=== PATIENT | female | born 1945 | race Caucasian/White ===

== ENCOUNTER 2016-07-25 14:02 | Emergency (ER) | payer MEDICARE, BC ==
[2016-07-25 14:44] VITALS: BP 148/75
--- NOTE | 2016-07-25 14:56 | EDM.PDOC ---
ED HPI Trauma - General Chief Complaint: Lower Extremity Injury/Pain Stated Complaint: FELL AND HURT LT FOOT Time Seen by Provider: 07/25/16 14:54 Source: Reports: Patient History Limitations: Reports: No limitations - History of Present Illness INITIAL COMMENTS - FREE TEXT/NARRATIVE: Pt hit the lateral aspect of the left foot getting out of the car, Occurred When: just prior to arrival Occurred Where: home Method of Injury: fall Pain/Injury Location: Reports: lower extremity, left Consciousness: Reports: no loss of consciousness Allergies/ADRs: Allergies ampicillin Allergy (Verified 07/25/16 14:43) Rash Home Medications: Ambulatory Orders Levothyroxine Sodium [Synthroid] 75 mg PO DAILY 07/25/16 [Confirmed 07/25/16] Liothyronine Sodium 5 mg PO DAILY 07/25/16 [Confirmed 07/25/16] Metoprolol Succinate 25 mg PO DAILY 07/25/16 [Confirmed 07/25/16] Past Medical History HEENT History: Reports: Impaired vision Cardiovascular History: Reports: Hypertension 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: Musculoskeletal History: Reports: Arthritis, Fracture Psychiatric History: Reports: Anxiety Endocrine/Metabolic History: Reports: Hypothyroidism - Past Surgical History Other Respiratory Surgeries/Procedures: cpap Female Surgical History: Reports: Hysterectomy Social & Family History - Tobacco Use Smoking Status *Q: Never Smoker - Caffeine Use Caffeine Use: Reports: Coffee - Recreational Drug Use Recreational Drug Use: No Review of Systems - Review of Systems Review Of Systems: See Below Constitutional: Reports: no symptoms Eyes: Reports: no symptoms Ears: Reports: no symptoms Nose: Reports: no symptoms Mouth/Throat: Reports: no symptoms Respiratory: Reports: No Symptoms Cardiovascular: Reports: no symptoms GI/Abdominal: Reports: No symptoms Musculoskeletal: Reports: other (pain the fifth metatarsal of the left foot. ) Skin: Reports: no symptoms Trauma Exam - Physical Exam Exam: See Below Exam Limited By: No limitations General Appearance: Reports: alert, anxious Head: Reports: atraumatic Eyes: bilateral eye: EOMI, normal inspection, PERRL Ears: Reports: normal TMs Nose: Reports: normal inspection Extremities: Reports: other (left foot is tender on the lateral aspect. xray reveals a undisplaced fracture of the 5th metatarsal. ) Course - Vital Signs Last Recorded V/S: Last Vital Signs Temp 37.0 C 07/25/16 14:46 Pulse 80 07/25/16 14:46 Resp 14 07/25/16 14:46 BP 148/75 H 07/25/16 14:46 Pulse Ox 96 07/25/16 14:46 - Orders/Labs/Meds Orders: Active Orders 24 hr Category Date Time Status Foot Comp Min 3V Lt [CR] Stat Exams 07/25/16 14:53 Taken - Re-Assessments/Exams Free Text/Narrative Re-Assessment/Exam: 07/25/16 16:01 a cam walker was placed which will keep the wt off of the front of the foot. She absolutely stated that she would be wt bearing. Departure - Departure Time of Disposition: 16:03 Disposition: Home, Self-Care 01 Condition: fair Clinical Impression: Fracture of fifth metatarsal bone of left foot Forms: ED Department Discharge Care Plan Goals: appt with Dr Toya Oliva in 10 days, elevate, cool pack, tylenol and motrin. for pain. - My Orders Last 24 Hours: My Active Orders 07/25/16 14:53 Foot Comp Min 3V Lt [CR] Stat - Assessment/Plan Last 24 Hours: My Active Orders 07/25/16 14:53 Foot Comp Min 3V Lt [CR] Stat
--- NOTE | 2016-07-26 09:24 | CR ---
Foot Comp Min 3V Lt HISTORY: Lateral foot pain. COMPARISON: None FINDINGS: Transverse fracture to the base of the fifth metatarsal with minimal displacement. Moderat e spurring inferior calcaneus. Adjacent cuboid bone appears intact.
== END 2016-07-25 16:16 | disposition home or self-care (01) ==
LOC: JP.ED 14:02
DX: S92.352A Displaced fracture of fifth metatarsal bone, left foot, initial encounter for closed fracture (principal); I10 Essential (primary) hypertension; E03.9 Hypothyroidism, unspecified; Z90.710 Acquired absence of both cervix and uterus; Z79.899 Other long term (current) drug therapy; Z88.1 Allergy status to other antibiotic agents; W19.XXXA Unspecified fall, initial encounter; Y92.099 Unspecified place in other non-institutional residence as the place of occurrence of the external cause
CPT/HCPCS: 73630-26-LT; 73630-LT; 99283; 99284